=== PATIENT | male | born 1955 | race African-American/Black ===

== ENCOUNTER 2016-09-29 08:07 | Emergency (ER) | payer MEDICAID ==
[~2016-09-29] VITALS: Ht 182.9 cm; Wt 91.0 kg
[2016-09-29 08:45] VITALS: BP 153/86
[2016-09-29] MEDS ORDERED: KETOROLAC 60MG/2ML VIAL IM ONE (08:45)
== END 2016-09-29 11:33 | disposition home or self-care (01) ==
LOC: ER 08:29
DX: M25.532 Pain in left wrist (principal); E11.9 Type 2 diabetes mellitus without complications; E78.00 Pure hypercholesterolemia, unspecified; I10 Essential (primary) hypertension
CPT/HCPCS: 29125; 73110; 96372; 99284; J1885

== ENCOUNTER 2016-12-11 08:52 | Emergency (ER) | payer MEDICAID ==
[~2016-12-11] VITALS: Ht 180.3 cm; Wt 91.0 kg
[2016-12-11 10:25] VITALS: BP 120/70
== END 2016-12-11 11:55 | disposition home or self-care (01) ==
LOC: ER 11:46
DX: J06.9 Acute upper respiratory infection, unspecified (principal); I10 Essential (primary) hypertension; E11.9 Type 2 diabetes mellitus without complications; E78.00 Pure hypercholesterolemia, unspecified
CPT/HCPCS: 99282